=== PATIENT | female | born 1975 | race Caucasian/White ===

== ENCOUNTER 2020-11-22 10:38 | Emergency (ER) | payer BC ==
[2020-11-22 11:47] VITALS: RESP 18
--- NOTE | 2020-11-22 11:48 | ED ---
SOB HPI - General Source: patient Mode of arrival: ambulatory Limitations: no limitations <Joya Ortez - Last Filed: 11/22/20 11:44> - General Source: patient, RN notes reviewed Mode of arrival: ambulatory Limitations: no limitations <Jr Mccabe - Last Filed: 11/22/20 14:26> - General Chief Complaint: Shortness of Breath Stated Complaint: sob/high BP&HR/Low O2 Time Seen by Provider: 11/22/20 11:44 - History of Present Illness Initial Comments: Patient is a 45yo female presenting to the emergency department with complaints of shortness of breath over the past month. Patient was diagnosed with Covid on October 27, she's been treated with steroids, inhalers but feels that her shortness of breath is worsening. She's been monitoring her oxygen levels at home anywhere from 93-95%. Patient saw Dr. Colbert today who recommended coming out to the ER for evaluation. She's been having a high heart rate, high blood pressure and low oxygen levels. She has not had the Covid vaccine. She denies any chest pain, no abdominal pain, nausea or vomiting, no diarrhea. She denies history of blood clots in the past. No pain in her legs, no recent travel. (Joya Ortez) - Related Data Home Medications Medication Instructions Recorded Confirmed Albuterol Sulfate [Albuterol 2 puff PO RT-Q4H PRN 11/22/20 11/22/20 Sulfate Hfa] Amitriptyline HCl [Elavil] 25 mg PO HS 11/22/20 11/22/20 FLUoxetine HCL [PROzac] 20 mg PO DAILY 11/22/20 11/22/20 Fluticasone Propionate 2 spray EA NOSTRIL DAILY 11/22/20 11/22/20 Loratadine-Pseudoeph 10-240 mg 1 tab PO DAILY 11/22/20 11/22/20 [Claritin-D 24 Hour] Metoprolol Succinate [Toprol XL] 50 mg PO DAILY 11/22/20 11/22/20 Norethindrone-E.estradiol-Iron 1 tab PO DAILY 11/22/20 11/22/20 [Junel Fe 1.5 mg-30 Mcg Tablet] Omeprazole Magnesium [PriLOSEC] 20 mg PO DAILY 11/22/20 11/22/20 SUMAtriptan SUCCINATE [Imitrex] 100 mg PO DAILY PRN 11/22/20 11/22/20 predniSONE [Deltasone] 20 mg PO DAILY 11/22/20 11/22/20 Allergies Allergy/AdvReac Type Severity Reaction Status Date / Time amoxicillin Allergy Rash/Hives Verified 11/22/20 13:44 cephalexin [From Keflex] Allergy Rash/Hives Verified 11/22/20 13:44 sulfamethoxazole Allergy Anaphylaxis Verified 11/22/20 13:44 [From Bactrim] trimethoprim [From Bactrim] Allergy Anaphylaxis Verified 11/22/20 13:44 Review of Systems ROS Other: All systems not noted in ROS Statement are negative. <Joya Ortez - Last Filed: 11/22/20 11:44> ROS Other: All systems not noted in ROS Statement are negative. <Jr Mccabe - Last Filed: 11/22/20 14:26> ROS Statement: Those systems with pertinent positive or pertinent negative responses have been documented in the HPI. General Exam Limitations: no limitations General appearance: alert, in no apparent distress Head exam: Present: atraumatic Eye exam: Present: normal appearance <Joya Ortez - Last Filed: 11/22/20 11:44> General appearance: alert, in no apparent distress Head exam: Present: atraumatic, normocephalic, normal inspection Eye exam: Present: normal appearance, PERRL, EOMI. Absent: scleral icterus, conjunctival injection, periorbital swelling ENT exam: Present: normal exam, normal oropharynx, mucous membranes moist Neck exam: Present: normal inspection, full ROM. Absent: tenderness, meningismus, lymphadenopathy Respiratory exam: Present: normal lung sounds bilaterally. Absent: respiratory distress, wheezes, rales, rhonchi, stridor Cardiovascular Exam: Present: normal rhythm, tachycardia, normal heart sounds. Absent: systolic murmur, diastolic murmur, rubs, gallop, clicks GI/Abdominal exam: Present: soft, normal bowel sounds. Absent: distended, tenderness, guarding, rebound, rigid Extremities exam: Absent: pedal edema, calf tenderness Neurological exam: Present: alert, oriented X3, CN II-XII intact Skin exam: Present: warm, dry, intact, normal color. Absent: rash <Jr Mccabe - Last Filed: 11/22/20 14:26> Course Vital Signs 11/22/20 11/22/20 11:43 13:28 Temperature 98.4 F 100 F H Pulse Rate 115 H 95 Respiratory 18 18 Rate Blood Pressure 176/128 161/97 O2 Sat by Pulse 97 95 Oximetry Medical Decision Making - Lab Data Result diagrams: 11/22/20 11:52 11/22/20 11:52 <Jr Mccabe - Last Filed: 11/22/20 14:26> - Medical Decision Making Referral presented to the emergency department to rule out PE. Patient recent COVID-19 that some exertional symptoms, recent hypertension and dyspnea. 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 (Jr Mccabe) - Lab Data Lab Results 11/22/20 11/22/20 11/22/20 Range/Units 11:52 11:52 11:52 WBC 13.6 H (3.8-10.6) k/uL RBC 4.95 (3.80-5.40) m/uL Hgb 14.8 (11.4-16.0) gm/dL Hct 44.9 (34.0-46.0) % MCV 90.7 (80.0-100.0) fL MCH 29.8 (25.0-35.0) pg MCHC 32.9 (31.0-37.0) g/dL RDW 11.8 (11.5-15.5) % Plt Count 456 H (150-450) k/uL MPV 6.8 Neutrophils % 86 % Lymphocytes % 10 % Monocytes % 2 % Eosinophils % 1 % Basophils % 0 % Neutrophils # 11.7 H (1.3-7.7) k/uL Lymphocytes # 1.4 (1.0-4.8) k/uL Monocytes # 0.2 (0-1.0) k/uL Eosinophils # 0.1 (0-0.7) k/uL Basophils # 0.0 (0-0.2) k/uL PT 10.0 (9.0-12.0) sec INR 0.9 (<1.2) APTT 22.6 (22.0-30.0) sec D-Dimer 0.17 (<0.60) mg/L FEU Sodium 137 (137-145) mmol/L Potassium 4.4 (3.5-5.1) mmol/L Chloride 102 (98-107) mmol/L Carbon Dioxide 24 (22-30) mmol/L Anion Gap 11 mmol/L BUN 18 H (7-17) mg/dL Creatinine 0.90 (0.52-1.04) mg/dL Est GFR (CKD-EPI)AfAm >90 (>60 ml/min/1.73 sqM) Est GFR (CKD-EPI)NonAf 78 (>60 ml/min/1.73 sqM) Glucose 117 H (74-99) mg/dL Plasma Lactic Acid Giorgio (0.7-2.0) mmol/L Calcium 10.0 (8.4-10.2) mg/dL Magnesium 2.1 (1.6-2.3) mg/dL Total Bilirubin 0.4 (0.2-1.3) mg/dL AST 27 (14-36) U/L ALT 27 (4-34) U/L Alkaline Phosphatase 85 (38-126) U/L Troponin I (0.000-0.034) ng/mL Total Protein 8.1 (6.3-8.2) g/dL Albumin 4.5 (3.5-5.0) g/dL Influenza Type A RNA (Not Detectd) Influenza Type B (PCR) (Not Detectd) 11/22/20 11/22/20 11/22/20 Range/Units 11:52 11:52 13:51 WBC (3.8-10.6) k/uL RBC (3.80-5.40) m/uL Hgb (11.4-16.0) gm/dL Hct (34.0-46.0) % MCV (80.0-100.0) fL MCH (25.0-35.0) pg MCHC (31.0-37.0) g/dL RDW (11.5-15.5) % Plt Count (150-450) k/uL MPV Neutrophils % % Lymphocytes % % Monocytes % % Eosinophils % % Basophils % % Neutrophils # (1.3-7.7) k/uL Lymphocytes # (1.0-4.8) k/uL Monocytes # (0-1.0) k/uL Eosinophils # (0-0.7) k/uL Basophils # (0-0.2) k/uL PT (9.0-12.0) sec INR (<1.2) APTT (22.0-30.0) sec D-Dimer (<0.60) mg/L FEU Sodium (137-145) mmol/L Potassium (3.5-5.1) mmol/L Chloride (98-107) mmol/L Carbon Dioxide (22-30) mmol/L Anion Gap mmol/L BUN (7-17) mg/dL Creatinine (0.52-1.04) mg/dL Est GFR (CKD-EPI)AfAm (>60 ml/min/1.73 sqM) Est GFR (CKD-EPI)NonAf (>60 ml/min/1.73 sqM) Glucose (74-99) mg/dL Plasma Lactic Acid Giorgio 1.3 (0.7-2.0) mmol/L Calcium (8.4-10.2) mg/dL Magnesium (1.6-2.3) mg/dL Total Bilirubin (0.2-1.3) mg/dL AST (14-36) U/L ALT (4-34) U/L Alkaline Phosphatase (38-126) U/L Troponin I <0.012 (0.000-0.034) ng/mL Total Protein (6.3-8.2) g/dL Albumin (3.5-5.0) g/dL Influenza Type A RNA Not Detected (Not Detectd) Influenza Type B (PCR) Not Detected (Not Detectd) Disposition <Joya Ortez - Last Filed: 11/22/20 11:44> Is patient prescribed a controlled substance at d/c from ED?: No Time of Disposition: 14:26 <Jr Mccabe - Last Filed: 11/22/20 14:26> Clinical Impression: History of COVID-19, Dyspnea, Hypertension Disposition: HOME SELF-CARE Condition: Stable Instructions (If sedation given, give patient instructions): Hypertension (ED) Additional Instructions: Please return to the Emergency Department if symptoms worsen or any other concerns. Referrals: Wen Lloyd MD [Primary Care Provider] - 1-2 days
[2020-11-22 12:12] LABS: Basophils % (A) 0 %; Eosinophils # (A) 0.1 k/uL (0-0.7); Eosinophils % (A) 1 %; HCT 44.9 % (34.0-46.0); HGB 14.8 gm/dL (11.4-16.0); Lymphocytes # (A) 1.4 k/uL (1.0-4.8); Lymphocytes % (A) 10 %; MCH 29.8 pg (25.0-35.0); MCHC 32.9 g/dL (31.0-37.0); MCV 90.7 fL (80.0-100.0); Mean Platelet Volume 6.8; Monocytes # (A) 0.2 k/uL (0-1.0); Monocytes % (A) 2 %; Neutrophils # (A) 11.7 k/uL (1.3-7.7); Neutrophils % (A) 86 %; Platelet Count 456 k/uL (150-450); RBC 4.95 m/uL (3.80-5.40); RDW 11.8 % (11.5-15.5); WBC 13.6 k/uL (3.8-10.6)
[2020-11-22 12:30] LABS: ALT 27 U/L (4-34); AST 27 U/L (14-36); African American GFR (CKD) >90 (>60 ml/min/1.73 sqM); Albumin 4.5 g/dL (3.5-5.0); Alkaline Phosphatase 85 U/L (38-126); Anion Gap 11 mmol/L; Blood Urea Nitrogen 18 mg/dL (7-17); Carbon Dioxide 24 mmol/L (22-30); Chloride 102 mmol/L (98-107); Glucose 117 mg/dL (74-99); INR 0.9 (<1.2); Magnesium 2.1 mg/dL (1.6-2.3); Non-African American GFR(CKD) 78 (>60 ml/min/1.73 sqM); Partial Thromboplastin Time 22.6 sec (22.0-30.0); Potassium 4.4 mmol/L (3.5-5.1); Sodium 137 mmol/L (137-145); Total Bilirubin 0.4 mg/dL (0.2-1.3); Total Protein 8.1 g/dL (6.3-8.2)
[2020-11-22] MEDS ORDERED: SODIUM CHLORIDE 0.9% 1,000 ML IV ONE (12:36)
--- NOTE | 2020-11-22 13:18 | CT ---
EXAMINATION TYPE: CT chest angio for PE DATE OF EXAM: 11/22/2020 COMPARISON: NONE HISTORY: COVID hx, SOB, chest pain CT DLP: 416.4 mGycm. Automated Exposure Control for Dose Reduction was Utilized. CONTRAST: CTA scan of the thorax is performed with IV Contrast, patient injected with 100 ml of Isovue 370, pul monary embolism protocol. MIP Images are created on CT scanner and reviewed. FINDINGS: LUNGS: Mild underlying emphysematous change. Slightly elevated left hemidiaphragm with mild left grea ter than right bibasilar linear scarring. There is 7 x 4 mm right basilar nodule axial image 114. No pleural effusion or pneumothorax seen bilaterally. Tracheobronchial tree is patent. MEDIASTINUM: There is satisfactory enhancement of the pulmonary artery and its branches, there is no CT evidence for pulmonary embolism. Satisfactory enhancement of the thoracic aorta without aneurysm o r dissection. There are no greater than 1 cm hilar or mediastinal lymph nodes. No cardiomegaly or p ericardial effusion is seen. OTHER: Gallstones in gallbladder partially imaged. IMPRESSION: Mild emphysematous change without acute pulmonary process.
[2020-11-22 13:29] VITALS: PULSE 95; TEMP 100
[2020-11-22] MEDS ORDERED: ACETAMINOPHEN TAB 325 MG TAB PO STA (13:42)
[2020-11-22 15:10] VITALS: BP 162/101
== END 2020-11-22 15:14 | disposition home or self-care (01) ==
LOC: EC 10:38
DX: R06.02 Shortness of breath (principal); I10 Essential (primary) hypertension; Z86.16 Personal history of COVID-19; Z88.0 Allergy status to penicillin; Z88.2 Allergy status to sulfonamides; Z88.1 Allergy status to other antibiotic agents
CPT/HCPCS: 36415; 93005; 85379; 80053; 83605; 83735; 84484; 85025; 85610; 85730; 87502; 71275; 99285; 96360; U0003; Q9967

== ENCOUNTER 2022-03-14 05:58 | Day surgery (SDC) | payer BC ==
[~2022-03-14 05:58] MED LIST: ALPRAZolam 0.25 MG TAB PO PRN; ALPRAZolam 0.5 MG TAB PO PRN; NITROGLYCERIN SL TABS 0.4 MG TAB SUBLINGUAL PRN; SODIUM CHLORIDE 0.9% 1,000 ML in EMPTY BAG 1 BAG IV ONE
[2022-03-14] MEDS ORDERED: SODIUM CHLORIDE 0.9% 1,000 ML IV ONE (06:07)
[2022-03-14 06:29] VITALS: RESP 16; TEMP 97.6
[2022-03-14] MEDS ORDERED: ASPIRIN 325 MG TAB PO ONE (07:00)
[2022-03-14] MEDS ORDERED: HEPARIN SODIUM,PORCINE 10,000 UNIT in SODIUM CHLORIDE 0.9% 1,000 ML IRRIGATION PRN (07:00)
[2022-03-14] MEDS ORDERED: ATORVASTATIN 80 MG TAB PO ONE (07:00)
[2022-03-14] MEDS ORDERED: HEPARIN SODIUM,PORCINE 2,500 UNIT in SODIUM CHLORIDE 0.9% 250 ML IRRIGATION PRN (07:00)
[2022-03-14] MEDS ORDERED: LIDOCAINE 1% INJ 10MG/ML (5 ML VIAL-PF) SQ ONE ×2 (07:37→07:38)
[2022-03-14] MEDS ORDERED: MIDAZOLAM 2 MG/2 ML VIAL IV ONE (07:38)
[2022-03-14] MEDS ORDERED: fentaNYL (PF) 50 MCG/ML 2 ML AMP IV ONE (07:38)
[2022-03-14] MEDS ORDERED: VERAPAMIL SYRINGE (5 MG/10 ML) INTRAARTER ONE (07:38)
[2022-03-14] MEDS ORDERED: HEPARIN SODIUM 1,000 UN/ML (10ML VL) IVP ONE (07:43)
[2022-03-14] MEDS ORDERED: HYDROmorphone 0.5 MG/0.5 ML SYRINGE IVP ONE (07:55)
[2022-03-14] MEDS ORDERED: IOPAMIDOL-370 125ML BTL INJ ONE (07:59)
--- NOTE | 2022-03-14 08:52 | CC ---
CARDIAC CATHETERIZATION REPORT INDICATIONS: Unstable angina. PROCEDURE NOTE: After informed consent, left heart catheterization and coronary angiogram were performed via the right radial artery using size 3 left Ren catheter, 3.5 right Ren catheter, and hemodynamics were obtained using right Ren catheter. The patient tolerated the procedure well without any obvious immediate complications, received 1 mg of Versed and 50 mcg of fentanyl and total sedation time is 26 minutes. Right radial artery access was obtained using modified Seldinger technique. Catheters and wires were floated into the ascending aorta under fluoroscopic guidance. Patient received 5 mg of verapamil and 4200 units of heparin per protocol. Hemostasis was obtained at the end of the procedure. FINDINGS: 1. Hemodynamics: Left ventricular end-diastolic pressure is 8 to 10 mm. There is no significant gradient across the aortic valve. 2. Left Ventriculogram: Left ventriculogram is not performed. 3. Angiographic Data: a.Right coronary artery is a small nondominant vessel and is free of stenosis. Left main coronary artery is a normal-sized vessel and is free of disease, divides into left anterior descending coronary artery and circumflex coronary artery. Circumflex coronary artery and its branches are free of significant stenosis. LAD shows mild atherosclerotic plaque in its midportion. 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 PLAN: I reviewed angiographic data with the patient and told her that her chest discomfort is noncardiac in origin and her management is going to be in the form of risk factor modification. MMODL / IJN: [id number] /
--- NOTE | 2022-03-14 09:07 | LTR ---
Dear Dr. Lloyd: I performed cardiac catheterization on Sunita Vargas, detailed catheterization note is enclosed with your records. In brief, the cardiac catheterization revealed mild nonobstructive disease involving LAD and her management is going to be in the form of optimum medical therapy. Thank you for giving us the privilege to participate in the care of this pleasant lady. HORACE / FRANCISCON: [id number] /
[2022-03-14] MEDS ORDERED: ACETAMINOPHEN TAB 500 MG TAB PO ONE ×2 (11:30)
[2022-03-14 12:35] VITALS: BP 112/72; PULSE 75
== END 2022-03-14 11:40 | disposition home or self-care (01) ==
LOC: CATHCVL 05:58
PROVIDERS: ATTEND Internal Medicine Cardiovascular Disease
DX: I25.119 Atherosclerotic heart disease of native coronary artery with unspecified angina pectoris (principal); I10 Essential (primary) hypertension; Z79.818 Long term (current) use of other agents affecting estrogen receptors and estrogen levels; Z79.810 Long term (current) use of selective estrogen receptor modulators (SERMs); Z82.49 Family history of ischemic heart disease and other diseases of the circulatory system; Z79.83 Long term (current) use of bisphosphonates; Z79.899 Other long term (current) drug therapy; Z79.82 Long term (current) use of aspirin; Z79.1 Long term (current) use of non-steroidal anti-inflammatories (NSAID)
CPT/HCPCS: 93458; 81025; C1769 ×2; C1894; C1887; J2250; J2001; J3010; J1644; J1170; Q9967